=== PATIENT | female | born 1955 | race African-American/Black ===

== ENCOUNTER → 2020-02-11 | Outpatient (CLI) | payer MEDICAID ==
[~2020-02-11] MED LIST: CARV25TA47 PO; LOSA50TA41 MT; SPIR25TA6 MT
== END | disposition home or self-care (01) ==
LOC: LAB 08:47
PROVIDERS: ATTEND Internal Medicine Clinical Cardiac Electrophysiology
DX: Z01.812 Encounter for preprocedural laboratory examination (principal); Z20.828 Contact with and (suspected) exposure to other viral communicable diseases
CPT/HCPCS: C9803; U0003

== ENCOUNTER 2020-02-12 06:42 | Inpatient (IN) | payer MEDICAID ==
[2020-02-12] VITALS (7 sets, daily range): BP systolic 94–137; BP diastolic 59–86
[~2020-02-12] VITALS: Ht 162.6 cm; Wt 77.6 kg
[2020-02-12 07:58] LABS: HEMATOCRIT 34.6 % (36.0-48.0); HEMOGLOBIN 11.6 g/dL (12.0-16.0); MEAN CORPUSCULAR HEMOGLOBIN 30.7 pg (28.0-32.0); MEAN CORPUSCULAR VOLUME 91.6 fL (81.0-99.0); PLATELET 220 x1000/uL (130-400); RED BLOOD CELL COUNT 3.78 mill/uL (4.2-5.4); RED CELL DISTRIBUTION WIDTH 14.2 % (11.6-14.6)
[2020-02-12 08:04] LABS: CHLORIDE 106 mEq/L (98-107)
[2020-02-12] MEDS ORDERED: CARV25TA47 PO (08:25)
[2020-02-12] MEDS ORDERED: SPIR25TA6 MT (08:25)
[2020-02-12] MEDS ORDERED: LOSA50TA41 MT (08:25)
[2020-02-12] MEDS ORDERED: SODIUM CHLORIDE 0.9% 10ML VIAL ONE ×4 (08:28→09:46)
[2020-02-12] MEDS ORDERED: LIDOCAINE HCL/PF 1% 10 MG/ML 5ML VIAL ONE (08:28)
[2020-02-12] MEDS ORDERED: ONDANSETRON HCL 4MG/2ML INJ ONE (08:28)
[2020-02-12] MEDS ORDERED: PROPOFOL 200MG/20ML VIAL IV ONE (08:28)
[2020-02-12] MEDS ORDERED: PHENYLEPHRINE HCL 10 MG/ML 1ML (IV VIAL) IV ONE (08:29)
[2020-02-12] MEDS ORDERED: DEXAMETHASONE 4MG/ML 1ML VIAL ONE (08:29)
[2020-02-12] MEDS ORDERED: MIDAZOLAM HCL 2 MG/2 ML VIAL ONE (08:34)
[2020-02-12] MEDS ORDERED: FENTANYL CITRATE/PF 50MCG/ML 2ML VIAL ONE (08:34)
[2020-02-12] MEDS ORDERED: GENTAMICIN SULF 40MG/ML 2ML VIAL ONE (08:44)
[2020-02-12] MEDS ORDERED: GENTAMICIN/NS IRRIGATION 500 ML IR ONE (08:44)
[2020-02-12] MEDS ORDERED: LIDOCAINE HCL 1% 20ML VIAL (Pyxis) INJ ONE (09:04)
[2020-02-12] MEDS ORDERED: CEFAZOLIN SODIUM 1000MG/VIAL ONE (09:05)
[2020-02-12] MEDS ORDERED: HYDROMORPHONE HCL/PF 2MG/ML CPJ IV PRN (10:45)
[2020-02-12] MEDS ORDERED: HYDROCODONE/ACETAMINOPHEN 5/325MG TABLET PO PRN (12:15)
[2020-02-12] MEDS: SPIRONOLACTONE 25MG TABLET PO SCH (17:00)
[2020-02-12] MEDS: CARVEDILOL 12.5MG TABLET PO SCH (21:00)
[2020-02-13] VITALS (12 sets, daily range): BP systolic 99–126; BP diastolic 57–79
[2020-02-13 05:57] LABS: CHLORIDE 109 mEq/L (98-107)
[2020-02-13 06:10] LABS: BASOPHILS % 0.4 % (0.0-2.0); EOSINOPHILS % 0.6 % (0.0-5.0); HEMATOCRIT. 33.8 % (36.0-48.0); HEMOGLOBIN. 11.3 g/dL (12.0-16.0); LYMPHOCYTES % 22.1 % (20.0-50.0); MEAN CORPUSCULAR HEMOGLOBIN 30.4 pg (28.0-32.0); MEAN CORPUSCULAR VOLUME 91.2 fL (81.0-99.0); MEAN PLATELET VOLUME 8.9 fl (7.4-10.4); MONOCYTES % 9.1 % (2.0-8.0); NEUTROPHILS % 67.8 % (40.0-76.0); PLATELET 222 x1000/uL (130-400); RED BLOOD CELL COUNT 3.71 mill/uL (4.2-5.4); RED CELL DISTRIBUTION WIDTH 14.3 % (11.6-14.6)
[2020-02-13] MEDS: SPIRONOLACTONE 25MG TABLET PO SCH ×2 (08:53→17:00)
[2020-02-13] MEDS: CARVEDILOL 12.5MG TABLET PO SCH (09:00)
[2020-02-13] MEDS ORDERED: LOSARTAN POTASSIUM 50 MG TABLET PO SCH (09:00)
[2020-02-13] MEDS ORDERED: CARV25TA47 PO (15:31)
[2020-02-13] MEDS ORDERED: TRAMADOL 50MG TABLET PO NR (15:46)
== END 2020-02-13 18:25 | disposition home or self-care (01) | DRG 176 ==
LOC: CCL 06:42 → 3WST 06:43
PROVIDERS: ADMIT Internal Medicine Clinical Cardiac Electrophysiology; ATTEND Internal Medicine Clinical Cardiac Electrophysiology
PROC: 0JH606Z Insertion of Pacemaker, Dual Chamber into Chest Subcutaneous Tissue and Fascia, Open Approach (ICD-10-PCS; principal; 2020-02-12)
PROC: 0JPT0FZ Removal of Subcutaneous Defibrillator Lead from Trunk Subcutaneous Tissue and Fascia, Open Approach (ICD-10-PCS; 2020-02-12)
PROC: 0JPT0PZ Removal of Cardiac Rhythm Related Device from Trunk Subcutaneous Tissue and Fascia, Open Approach (ICD-10-PCS; 2020-02-12)
DX: I49.01 Ventricular fibrillation (principal); I42.9 Cardiomyopathy, unspecified; I51.81 Takotsubo syndrome; I25.10 Atherosclerotic heart disease of native coronary artery without angina pectoris; I46.9 Cardiac arrest, cause unspecified; Z95.810 Presence of automatic (implantable) cardiac defibrillator; Z45.018 Encounter for adjustment and management of other part of cardiac pacemaker
CPT/HCPCS: 33263; 36415; 71045; 80048; 85025; 85027; 93005; 93641; J0690; J1100; J1170; J1580; J2250; J2370; J2405; J2704; J3010; J3490

== ENCOUNTER 2021-02-20 11:39 | Emergency (ER) | payer MEDICAID ==
[~2021-02-20] VITALS: Ht 162.6 cm; Wt 73.0 kg
[2021-02-20] MEDS ORDERED: BACITRACIN ZINC OINT UDPKT TOP ONE (12:30)
[2021-02-20] MEDS ORDERED: IBUPROFEN 600MG TABLET PO NR (12:30)
[2021-02-20] MEDS ORDERED: ACET-2708 PO (12:50)
[2021-02-20] MEDS ORDERED: TETANUS, DIPHTHERIA, PERTUSSIS VAC/PF 0.5ML (>10YR OLD) IM ONE (13:00)
[2021-02-20 13:20] VITALS: BP 132/86
== END 2021-02-20 13:23 | disposition home or self-care (01) ==
LOC: ER 11:57
DX: S61.213A Laceration without foreign body of left middle finger without damage to nail, initial encounter (principal); W26.8XXA Contact with other sharp object(s), not elsewhere classified, initial encounter; Y93.89 Activity, other specified; Y92.89 Other specified places as the place of occurrence of the external cause; Y99.8 Other external cause status; Z95.0 Presence of cardiac pacemaker; Z90.710 Acquired absence of both cervix and uterus
CPT/HCPCS: 90471; 90715; 99283